=== PATIENT | male | born 1970 | race Caucasian/White ===

== ENCOUNTER 2019-05-12 17:48 | Inpatient (IN) | payer MEDICARE, MEDICAID ==
[~2019-05-12] VITALS: Ht 170.2 cm; Wt 90.3 kg
[~2019-05-12 17:48] MED LIST: BENZ1TAB70 PO; DIPH25CA85 PO; GABA-533 PO; LISI-622 PO; MIRT30 PO; PALI3 PO; QUET200T PO
[2019-05-12 18:42] LABS: BASOPHILS % (AUTO) 0.6 % (0.0-2.0); EOSINOPHILS % (AUTO) 0.7 % (1.0-6.0); HEMATOCRIT 43.6 % (41-53); HEMOGLOBIN 15.3 g/dL (13.5-17.5); LYMPHOCYTES # (AUTO) 2.6 K/uL (1.0-4.8); MEAN CORPUSCULAR HEMOGLOBIN 29.6 pg (26.0-34.0); MEAN CORPUSCULAR VOLUME 85 fL (80-100); MONOCYTES # (AUTO) 0.5 K/uL (0.1-1.0); MONOCYTES % (AUTO) 5.8 % (2.0-9.0); NEUTROPHILS % (AUTO) 64.9 % (40.0-70.0); PLATELET COUNT (AUTO) 226 K/uL (150-450); RED BLOOD CELL COUNT(AUTO) 5.16 MIL/uL (4.50-5.90)
[2019-05-12 18:50] LABS: AMPHET/METH SCREEN,URINE NEGATIVE (NEGATIVE); BARBITURATE SCREEN, URINE NEGATIVE (NEGATIVE); BENZODIAZEPINES SCREEN,URINE NEGATIVE (NEGATIVE); CANNABINOID SCREEN,URINE POSITIVE (NEGATIVE); COCAINE SCREEN,URINE NEGATIVE (NEGATIVE); METHADONE SCREEN, URINE NEGATIVE (NEGATIVE); OPIATE SCREEN,URINE NEGATIVE (NEGATIVE)
[2019-05-12 18:51] LABS: PHENCYCLIDINE SCREEN,URINE NEGATIVE (NEGATIVE)
[2019-05-12 18:58] LABS: ANION GAP 11 mmol/L (8-16); CALCIUM, TOTAL 9.1 mg/dL (8.8-10.5); CARBON DIOXIDE 25 mmol/L (22-29); CHLORIDE 100 mmol/L (98-107); CREATININE 0.94 mg/dL (0.60-1.30); GLOMERULAR FILTR. RATE CALC > 60 mL/min (>60); GLUCOSE,RANDOM 149 mg/dL (70-110); POTASSIUM 3.8 mmol/L (3.5-5.1); SODIUM SERUM 136 mmol/L (136-145); UREA NITROGEN, BLOOD 10 mg/dL (7-18)
[2019-05-12 19:10] LABS: ALANINE AMINOTRANSFERASE 26 U/L (12-78); ALKALINE PHOSPHATASE 81 U/L (46-116); ASPARTATE AMINOTRANSFERASE 9 U/L (15-37); BILIRUBIN,TOTAL 0.4 mg/dL (0.1-1.0); TOTAL PROTEIN, SERUM 8.3 g/dL (6.4-8.2)
[2019-05-12] MEDS ORDERED: ZOLPIDEM TARTRATE 10 MG TABLET PO PRN (19:30)
[2019-05-12] MEDS ORDERED: HALOPERIDOL 5 MG TABLET PO PRN (19:30)
[2019-05-12] MEDS ORDERED: LORazepam 2 MG TABLET PO PRN (19:30)
[2019-05-12] MEDS ORDERED: CloNIDine HCL 0.1 MG TABLET PO PRN (20:45)
[2019-05-12] MEDS ORDERED: ONDANSETRON HCL 4 MG TABLET PO PRN (20:45)
[2019-05-12] MEDS ORDERED: MAG HYDROX/AL HYDROX/SIMETH ES 30 ML SUSPENSION UDCUP PO PRN (20:45)
[2019-05-12] MEDS ORDERED: LOPERAMIDE HCL 2 MG CAPSULE PO PRN (20:45)
[2019-05-12] MEDS ORDERED: DOCUSATE SODIUM 100 MG CAPSULE PO PRN (20:45)
[2019-05-12] MEDS ORDERED: PETROLATUM,WHITE 28 GM JELLY TP PRN (20:45)
[2019-05-12] MEDS ORDERED: ACETAMINOPHEN 325 MG TABLET PO PRN (20:45)
[2019-05-12] MEDS ORDERED: NICOTINE 14 MG/24 HOUR PATCH TD PRN (20:45)
[2019-05-12] MEDS ORDERED: GuaiFENesin/D-METHORPHAN [SUGAR-FREE] 200-20MG/10 ML SYRUP UDCUP PO PRN (20:45)
[2019-05-12] MEDS ORDERED: MAGNESIUM HYDROXIDE SUSPENSION 30 ML UDCUP PO PRN (20:45)
[2019-05-12] MEDS ORDERED: IBUPROFEN 400 MG TABLET PO PRN (20:45)
[2019-05-12] MEDS ORDERED: ALBUTEROL SULFATE HFA 90 MCG/PUFF 8 GM INHALER IH PRN (20:45)
[2019-05-13 10:39] VITALS: BP 141/83
[2019-05-13] MEDS ORDERED: GLUCAGON,HUMAN RECOMBINANT 1 MG VIAL IM PRN (11:15)
[2019-05-13] MEDS ORDERED: INSULIN LISPRO 100 UNITS/ML SQ PRN (11:15)
[2019-05-13 11:28] LABS: GLUCOMETER DEV NAME(LOC) BV2X.; GLUCOSE,POINT OF CARE 192 MG/DL (70-110)
[2019-05-13] MEDS ORDERED: METF-960 PO (16:04)
[2019-05-13] MEDS ORDERED: LISI-662 PO (16:04)
[2019-05-13] MEDS ORDERED: ATOR40TA28 PO (16:04)
[2019-05-13] MEDS ORDERED: GLIP5 PO (16:04)
[2019-05-13 16:09] VITALS: BP 112/68
[2019-05-13] MEDS ORDERED: GlipiZIDE 5 MG TABLET PO SCH (16:30)
[2019-05-13] MEDS ORDERED: MetFORMIN HCL 500 MG TABLET PO SCH (17:00)
[2019-05-13] MEDS ORDERED: MIRTAZAPINE 30 MG TABLET PO SCH (21:00)
[2019-05-13] MEDS ORDERED: ATORVASTATIN CALCIUM 40 MG TABLET PO SCH (21:00)
[2019-05-14] MEDS ORDERED: LISINOPRIL 20 MG TABLET PO SCH (09:00)
== END 2019-05-13 17:30 | disposition home or self-care (01) | DRG 885 ==
LOC: EMS 17:50 → B2X 05-13 08:38
PROVIDERS: ADMIT Psychiatry & Neurology Child & Adolescent Psychiatry; ATTEND Psychiatry & Neurology Child & Adolescent Psychiatry
DX: F25.0 Schizoaffective disorder, bipolar type (principal); Z59.0 Homelessness; M19.90 Unspecified osteoarthritis, unspecified site; I10 Essential (primary) hypertension; E78.5 Hyperlipidemia, unspecified; E11.9 Type 2 diabetes mellitus without complications; F12.90 Cannabis use, unspecified, uncomplicated
CPT/HCPCS: G0480

== ENCOUNTER 2021-03-11 17:22 | Inpatient (IN) | payer MEDICARE, MEDICAID ==
[~2021-03-11] VITALS: Ht 177.8 cm; Wt 94.8 kg
[~2021-03-11 17:22] MED LIST changes: +ATOR40TA28 PO; -BENZ1TAB70 PO; -DIPH25CA85 PO; -GABA-533 PO; +GLIP5 PO; -LISI-622 PO; +LISI-894 PO; +METF-960 PO; -PALI3 PO; -QUET200T PO
[2021-03-11 18:10] LABS: BASOPHILS % (AUTO) 0.4 % (0.0-2.0); EOSINOPHILS % (AUTO) 0.3 % (1.0-6.0); HEMATOCRIT 45.6 % (41-53); HEMOGLOBIN 15.6 g/dL (13.5-17.5); LYMPHOCYTES # (AUTO) 1.7 K/uL (1.0-4.8); LYMPHOCYTES % (AUTO) 18.4 % (22.0-44.0); MEAN CORPUSCULAR HEMOGLOBIN 29.3 pg (26.0-34.0); MEAN CORPUSCULAR HGB CONC 34.3 G/dL (31.0-37.0); MEAN CORPUSCULAR VOLUME 86 fL (80-100); MONOCYTES # (AUTO) 0.5 K/uL (0.1-1.0); MONOCYTES % (AUTO) 5.7 % (2.0-9.0); NEUTROPHILS % (AUTO) 75.2 % (40.0-70.0); PLATELET COUNT (AUTO) 221 K/uL (150-450); RED BLOOD CELL COUNT(AUTO) 5.32 MIL/uL (4.50-5.90); RED CELL DISTRIBUTION WIDTH 13.6 % (11.5-14.5)
[2021-03-11 18:14] LABS: ANION GAP 10 mmol/L (8-16); CALCIUM, TOTAL 8.9 mg/dL (8.8-10.5); CARBON DIOXIDE 27 mmol/L (22-29); CHLORIDE 102 mmol/L (98-107); CREATININE 0.96 mg/dL (0.60-1.30); GLOMERULAR FILTR. RATE CALC > 60 mL/min (>60); GLUCOSE,RANDOM 135 mg/dL (70-110); SODIUM SERUM 139 mmol/L (136-145); UREA NITROGEN, BLOOD 8 mg/dL (7-18)
[2021-03-11 18:20] LABS: ALANINE AMINOTRANSFERASE 30 U/L (12-78); ALBUMIN 4.2 g/dL (3.4-5.0); ALKALINE PHOSPHATASE 90 U/L (46-116); ASPARTATE AMINOTRANSFERASE 15 U/L (15-37); BILIRUBIN,TOTAL 0.4 mg/dL (0.1-1.0); TOTAL PROTEIN, SERUM 8.7 g/dL (6.4-8.2)
[2021-03-11 18:25] LABS: ACETAMINOPHEN < 2 mcg/mL (10-30)
[2021-03-11 18:52] LABS: SALICYLATE 1.3 mg/dL (2.8-20.0)
[2021-03-11 19:25] LABS: APPEARANCE,URINE CLEAR (CLEAR); BILIRUBIN,URINE NEGATIVE (NEGATIVE); GLUCOSE, URINE (UA) NEGATIVE (NEGATIVE); KETONES,URINE NEGATIVE (NEGATIVE); LEUKOCYTE ESTERASE ,URINE NEGATIVE (NEGATIVE); NITRATE,URINE NEGATIVE (NEGATIVE); OCCULT BLOOD,URINE NEGATIVE (NEGATIVE); PROTEIN,URINE NEGATIVE (NEGATIVE); UROBILINOGEN,URINE 0.2 mg/dL (<=1.0)
[2021-03-11 19:30] LABS: AMPHET/METH SCREEN,URINE NEGATIVE (NEGATIVE); BARBITURATE SCREEN, URINE NEGATIVE (NEGATIVE); BENZODIAZEPINES SCREEN,URINE NEGATIVE (NEGATIVE); CANNABINOID SCREEN,URINE POSITIVE (NEGATIVE); COCAINE SCREEN,URINE NEGATIVE (NEGATIVE); METHADONE SCREEN, URINE NEGATIVE (NEGATIVE); OPIATE SCREEN,URINE NEGATIVE (NEGATIVE)
[2021-03-11 19:31] LABS: PHENCYCLIDINE SCREEN,URINE NEGATIVE (NEGATIVE)
[2021-03-11 19:35] LABS: COVID AG,FIA SOURCE NASOPHARYNGEAL
[2021-03-11 20:00] LABS: BACTERIA,URINE None Seen /HPF (None Seen); RBC,URINE None Seen /HPF (0-2); WBC,URINE None Seen /HPF (0-5)
[2021-03-11] MEDS ORDERED: LORazepam 2 MG TABLET PO PRN (20:15)
[2021-03-11] MEDS ORDERED: HALOPERIDOL 5 MG TABLET PO PRN (20:15)
[2021-03-11] MEDS ORDERED: LORazepam 2 MG/ML VIAL ONE (20:58)
[2021-03-11] MEDS ORDERED: DiphenhydrAMINE HCL 50 MG/ML VIAL ONE (20:58)
[2021-03-11] MEDS ORDERED: HALOPERIDOL LACTATE 5 MG/ML VIAL ONE (20:58)
[2021-03-11] MEDS: ZOLPIDEM TARTRATE 10 MG TABLET PO PRN (21:12)
[2021-03-11] MEDS ORDERED: DiphenhydrAMINE HCL 50 MG/ML VIAL IM ONE ×2 (21:15→22:15)
[2021-03-11] MEDS ORDERED: ALBU8HFA IH (22:11)
[2021-03-11] MEDS ORDERED: ALBUTEROL SULFATE HFA 90 MCG/PUFF 8 GM INHALER IH ONE ×2 (22:13→22:15)
[2021-03-11] MEDS ORDERED: HALOPERIDOL LACTATE 5 MG/ML VIAL IM ONE (22:15)
[2021-03-11] MEDS ORDERED: LORazepam 2 MG/ML VIAL IM ONE (22:15)
[2021-03-11 22:34] LABS: APPEARANCE,URINE CLEAR (CLEAR); BILIRUBIN,URINE NEGATIVE (NEGATIVE); GLUCOSE, URINE (UA) NEGATIVE (NEGATIVE); KETONES,URINE NEGATIVE (NEGATIVE); LEUKOCYTE ESTERASE ,URINE NEGATIVE (NEGATIVE); NITRATE,URINE NEGATIVE (NEGATIVE); OCCULT BLOOD,URINE NEGATIVE (NEGATIVE); PROTEIN,URINE NEGATIVE (NEGATIVE); UROBILINOGEN,URINE 0.2 mg/dL (<=1.0)
[2021-03-11 22:40] LABS: AMPHET/METH SCREEN,URINE NEGATIVE (NEGATIVE); BARBITURATE SCREEN, URINE NEGATIVE (NEGATIVE); BENZODIAZEPINES SCREEN,URINE NEGATIVE (NEGATIVE); CANNABINOID SCREEN,URINE POSITIVE (NEGATIVE); COCAINE SCREEN,URINE NEGATIVE (NEGATIVE); METHADONE SCREEN, URINE NEGATIVE (NEGATIVE); OPIATE SCREEN,URINE NEGATIVE (NEGATIVE); PHENCYCLIDINE SCREEN,URINE NEGATIVE (NEGATIVE)
[2021-03-12 01:33] LABS: CHOL/HDL RATIO 5.7 (4.2-7.3); CHOLESTEROL 279 mg/dL (131-200); HDL CHOLESTEROL 49 mg/dL (40-60); TRIGLYCERIDES 482 mg/dL (15-150)
[2021-03-12 16:25] VITALS: BP 134/80
[2021-03-12] MEDS: ZOLPIDEM TARTRATE 10 MG TABLET PO PRN (20:05)
[2021-03-13 04:46] VITALS: BP 119/74
[2021-03-13] MEDS ORDERED: ALBUTEROL SULFATE HFA 90 MCG/PUFF 8 GM INHALER IH PRN (08:00)
[2021-03-13] MEDS ORDERED: LOPERAMIDE HCL 2 MG CAPSULE PO PRN (08:15)
[2021-03-13] MEDS ORDERED: CloNIDine HCL 0.1 MG TABLET PO PRN (08:15)
[2021-03-13] MEDS ORDERED: GuaiFENesin/D-METHORPHAN [SUGAR-FREE] 200-20MG/10 ML SYRUP UDCUP PO PRN (08:15)
[2021-03-13] MEDS ORDERED: MAGNESIUM HYDROXIDE SUSPENSION 30 ML UDCUP PO PRN (08:15)
[2021-03-13] MEDS ORDERED: ONDANSETRON HCL 4 MG TABLET PO PRN (08:15)
[2021-03-13] MEDS ORDERED: DOCUSATE SODIUM 100 MG CAPSULE PO PRN (08:15)
[2021-03-13] MEDS ORDERED: PETROLATUM,WHITE 28 GM JELLY TP PRN (08:15)
[2021-03-13] MEDS ORDERED: NICOTINE 14 MG/24 HOUR PATCH TD PRN (08:15)
[2021-03-13] MEDS ORDERED: MAG HYDROX/AL HYDROX/SIMETH ES 30 ML SUSPENSION UDCUP PO PRN (08:15)
[2021-03-13] MEDS ORDERED: ACETAMINOPHEN 325 MG TABLET PO PRN (08:15)
[2021-03-13 08:23] VITALS: BP 136/69
[2021-03-13] MEDS: LISINOPRIL 20 MG TABLET PO SCH (12:55)
[2021-03-13] MEDS: CETIRIZINE HCL 10 MG TABLET PO PRN (15:10)
[2021-03-13] MEDS: GlipiZIDE 5 MG TABLET PO SCH (16:30)
[2021-03-13] MEDS: MetFORMIN HCL 500 MG TABLET PO SCH (16:42)
[2021-03-13] MEDS: MIRTAZAPINE 30 MG TABLET PO SCH (20:41)
[2021-03-13] MEDS: ATORVASTATIN CALCIUM 40 MG TABLET PO SCH (20:42)
[2021-03-13] MEDS: ZOLPIDEM TARTRATE 10 MG TABLET PO PRN (20:45)
[2021-03-14 05:52] VITALS: BP 118/66
[2021-03-14] MEDS: GlipiZIDE 5 MG TABLET PO SCH ×2 (06:30→16:30)
[2021-03-14] MEDS: MetFORMIN HCL 500 MG TABLET PO SCH ×2 (07:00→16:34)
[2021-03-14 08:28] VITALS: BP 113/66
[2021-03-14] MEDS: LISINOPRIL 20 MG TABLET PO SCH (08:38)
[2021-03-14] MEDS: FLUTICASONE PROPIONATE 50 MCG/SPRAY 16 GM NASAL SPRAY NASAL PRN ×2 (08:54→15:40)
[2021-03-14] MEDS: ALBUTEROL SULFATE HFA 90 MCG/PUFF 8 GM INHALER IH PRN ×2 (08:55→15:40)
[2021-03-14] MEDS: IBUPROFEN 400 MG TABLET PO PRN (09:12)
[2021-03-14] MEDS: CETIRIZINE HCL 10 MG TABLET PO PRN (15:40)
[2021-03-14 16:30] VITALS: BP 122/55
[2021-03-14] MEDS: MIRTAZAPINE 30 MG TABLET PO SCH (20:36)
[2021-03-14] MEDS: ATORVASTATIN CALCIUM 40 MG TABLET PO SCH (20:37)
[2021-03-14] MEDS: OLANZapine 5 MG RAPDIS TABLET PO SCH (20:37)
[2021-03-14] MEDS: ZOLPIDEM TARTRATE 10 MG TABLET PO PRN (21:21)
[2021-03-15] MEDS: GlipiZIDE 5 MG TABLET PO SCH ×2 (06:30→16:30)
[2021-03-15] MEDS: MetFORMIN HCL 500 MG TABLET PO SCH ×2 (06:41→16:36)
[2021-03-15 08:31] VITALS: BP 139/69
[2021-03-15] MEDS: LISINOPRIL 20 MG TABLET PO SCH (09:24)
[2021-03-15] MEDS: FLUTICASONE PROPIONATE 50 MCG/SPRAY 16 GM NASAL SPRAY NASAL PRN (10:30)
[2021-03-15] MEDS: IBUPROFEN 400 MG TABLET PO PRN (11:09)
[2021-03-15] MEDS: ALBUTEROL SULFATE HFA 90 MCG/PUFF 8 GM INHALER IH PRN (13:02)
[2021-03-15 16:29] VITALS: BP 128/72
[2021-03-15] MEDS: ATORVASTATIN CALCIUM 40 MG TABLET PO SCH (20:44)
[2021-03-15] MEDS: OLANZapine 5 MG RAPDIS TABLET PO SCH (20:44)
[2021-03-15] MEDS: MIRTAZAPINE 30 MG TABLET PO SCH (20:44)
[2021-03-16 02:26] VITALS: BP 156/63
[2021-03-16] MEDS: IBUPROFEN 400 MG TABLET PO PRN (02:31)
[2021-03-16] MEDS: GlipiZIDE 5 MG TABLET PO SCH (06:30)
[2021-03-16] MEDS: MetFORMIN HCL 500 MG TABLET PO SCH (06:53)
[2021-03-16 08:17] VITALS: BP 133/76
[2021-03-16] MEDS: LISINOPRIL 20 MG TABLET PO SCH (09:51)
[2021-03-16] MEDS: FLUTICASONE PROPIONATE 50 MCG/SPRAY 16 GM NASAL SPRAY NASAL PRN (11:09)
[2021-03-16] MEDS ORDERED: OLAN5TAB94 PO (11:54)
== END 2021-03-16 12:10 | disposition home or self-care (01) | DRG 885 ==
LOC: EMS 17:31 → B2S 03-12 10:48
DX: F20.0 Paranoid schizophrenia (principal); E11.9 Type 2 diabetes mellitus without complications; E53.8 Deficiency of other specified B group vitamins; E66.9 Obesity, unspecified; E78.5 Hyperlipidemia, unspecified; F10.10 Alcohol abuse, uncomplicated; F12.10 Cannabis abuse, uncomplicated; Z20.822 Contact with and (suspected) exposure to COVID-19; F31.9 Bipolar disorder, unspecified; I10 Essential (primary) hypertension; J45.909 Unspecified asthma, uncomplicated; Z78.1 Physical restraint status; Z79.899 Other long term (current) drug therapy; Z91.14 Patient's other noncompliance with medication regimen; Z59.0 Homelessness; Z79.84 Long term (current) use of oral hypoglycemic drugs; Z68.30 Body mass index [BMI] 30.0-30.9, adult; Z71.41 Alcohol abuse counseling and surveillance of alcoholic; Z71.51 Drug abuse counseling and surveillance of drug abuser
CPT/HCPCS: 80053; 80061; 81001; 81003; 85025; 99291; G0480; G0481; J1200; J1630; J2060; J3535